=== PATIENT | male | born 1995 | race Caucasian/White ===

== ENCOUNTER 2024-10-17 16:00 | Emergency (ER) | payer SELFPAY ==
[2024-10-17 16:03] VITALS: BP 138/82; PULSE 101; RESP 16; TEMP 36.7; O2SAT 97; BMI 20.1
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
--- NOTE | 2024-10-17 16:19 | W.ED.UPPEXIN ---
HPI - Extremity Injury (Upper) General: Chief Complaint: Extremity Injury, Upper Stated Complaint: left hand pain Time Seen by Provider: 10/17/24 16:01 Source: patient Mode of arrival: ambulatory Limitations: no limitations History of Present Illness: Patient is a 29-year-old male presents to ED today for evaluation of a left hand injury. Patient states he smashed the hand in a tucker while working on a tractor. Last tetanus was approximately 11 years ago. He denies numbness, tingling, loss of sensation to the hand or digits. MD complaint: injury to: left and hand Onset (ago): hour(s) Other Extremity Injury: Left: hand Other injuries: none Place: home Severity: moderate Relieving factors: none Exacerbating factors: none Context: direct blow and crush Associated symptoms: Reports no associated symptoms Treatments prior to arrival: bandage Related Data Previous Rx's ?Medication ?Instructions ?Recorded cephalexin 500 mg capsule 500 mg PO Q6H 7 days #28 caps 10/17/24 Allergies Allergy/AdvReac Type Severity Reaction Status Date / Time No Known Allergies Allergy Verified 10/17/24 16:21 Review of Systems Musc: Reports: extremity pain (L hand) and extremity swelling Skin/Breast: Reports: other (hand laceration) Neuro: Denies: numbness in extremities or sensory changes Physical Exam Const: COMMON NORMALS: no acute distress, no limitations, alert and well nourished GENERAL APPEARANCE: cooperative Extremity: COMMON NORMALS: full ROM and capillary refill normal GENERAL: Yes normal exam except as noted LEFT UPPER EXTREMITY: Yes hand & digits (contusion L index finger; laceration palmar base of index near MCP) Left hand and digits: Yes neurovascular exam (normal) and Yes tendon exam (no obvious tendon involvement) Neuro: COMMON NORMALS: moves all extremities, no focal motor deficits and no sensory deficits noted SENSORIUM/ORIENTATION: Yes alert Skin: TRAUMA: abrasion and laceration Procedures Laceration Laceration 1: Site: hand Side (If applicable): left Size (cm): 2.0 Description: irregular Depth: simple, single layer Local Anesthetic: lidocaine 2% Amount of anesthesia used (mL): 2.0 Pre-repair: wound explored and irrigated extensively Skin layer closed with: nylon Size (cm): 4-0 Number of sutures: 5 Technique: simple, interrupted Course Vital Signs: Vital signs: Vital Signs Temperature 98.1 F 10/17/24 16:03 Pulse Rate 101 H 10/17/24 16:03 Respiratory Rate 16 10/17/24 16:03 Blood Pressure 138/82 10/17/24 16:03 Pulse Oximetry 97 10/17/24 16:03 MDM - Extremity Injury (Upper) Medical Decision Making Personal interpretation of patient's XR is unremarkable. He does have a previous foreign body noted. Wound was copiously irrigated and repaired as documented. Wound care/infection precautions/suture removal were all discussed with patient. Medical Records I reviewed the patient's medical records. XR interpretation done by ED provider, pending radiology final review Discharge Plan Discharge Patient Disposition: Home Clinical Impression: Laceration of left hand Qualifiers: Encounter type: initial encounter Foreign body presence: without foreign body Qualified Code(s): S61.412A - Laceration without foreign body of left hand, initial encounter Condition: Stable Prescriptions: New cephalexin 500 mg capsule 500 mg PO Q6H 7 Days Qty: 28 0RF Discharge Orders: Discharge ED (Routine); Ordered 10/17/24 Ordered By: Meghan Levi Patient Instructions: Laceration (DC) Activity Restrictions/Additional Instructions: Keep wound/laceration clean with warm soap and water twice daily. Monitor for signs of infection such as redness, swelling, increased pain, or drainage. Please seek medical re-evaluation if these occur. If you received sutures today these will need to be removed (unless you were told by the provider that they are absorbable). The provider should have discussed with you the length of time until removal-7 DAYS. Print Language: Lithuanian Coding Level of Care Code ED Methods And Procedures Analyst for Mylene Urbina
[2024-10-17] MEDS: tetanus-dipt-pertussis 0.5 mL SDV IM (16:29)
[2024-10-17 17:24] VITALS: BP 130/85; PULSE 91; O2SAT 94
== END 2024-10-17 17:26 | disposition home or self-care (01) ==
PROVIDERS: Emergency Provider Physician Assistant
DX: S61.412A Laceration without foreign body of left hand, initial encounter (principal); W23.1XXA Caught, crushed, jammed, or pinched between stationary objects, initial encounter
CPT/HCPCS: 12001; 73130; 90471; 90715; 99283